=== PATIENT | female | born 1945 | race Caucasian/White ===

== ENCOUNTER → 2016-04-26 | Outpatient (CLI) | payer OTHER ==
[~2016-04-26] MED LIST: ASPIRIN81 M1 PO; ASPIRIN81 M2 PO; CELEXA PO; COREG3.125 MG PO; FOSAMAX PO; LEXAPRO PO; LISINOPRIL PO; VITAMIN B12-FO1 EACH PO
--- NOTE | ~2016-04-26 | MY11 ---
[facility] A Service of [facility] RADIOLOGY TEXT RESULTS PATIENT: RAUL JOHN LOCATION: [facility] : 45 UNIT #: [id number] AGE: [address]: Ye Cotton MD SEX: F ORDER DR: [id number] [facility] [address] [place], [place] [address] [id number] O MR#: [id number] Acc #: [id number] NAME: RAUL JOHN : 1945 SEX: F STUDY DATE/TIME: 04/26/2016 15:29 UNIT: [facility] ROOM: STUDY DESCRIPTION: MY Mammogram Screening [place] Attending Physician: Ye Cotton M.D. Ordering Physician: Ye Cotton M.D. Primary Care Physician: Ye Cotton M.D. MEDICAL IMAGING REPORT This report is preliminary unless electronic signature is present EXAM Digital screening mammogram, 04/26/2016. HISTORY 70-year-old woman positive family history, paternal grandmother. Annual screening. COMPARISON Mammograms date to 05/17/2007 with most recent 02/18/2015. Digital imaging of each breast was completed utilizing screening protocol. Review includes FDA-approved CAD device. Breast parenchyma is heterogeneously dense with a combination fibroglandular opacities and mild parenchymal nodularity. Subareolar duct prominence is noted in each breast. I see no suspicious mass and no suspicious microcalcifications. There is no architectural deformity. IMPRESSION Stable benign mammogram. Annual screening recommended. Patients over the age of 40 are entered into a reminder system with target due date for the next mammogram. A result letter will also be sent to the patient. BIRADS: 2 Benign finding Dictated by... Julio Mcdonald M.D. THIS IS AN ELECTRONICALLY VERIFIED REPORT Julio Mcdonald M.D. at 04/27/2016 8:04 AM [facility] A Service of [facility] RADIOLOGY TEXT RESULTS PATIENT: RAUL JOHN [id number] : 45 UNIT #: [id number] AGE: [address]: Ye Cotton MD SEX: F ORDER DR: HUBER/sindhu TD: 04/26/2016 21:57 JOB #: [id number] MEDICAL IMAGING REPORT Page 1 of 1 COPY
== END | disposition home or self-care (01) ==
LOC: CWCC 15:00
DX: Z12.31 Encounter for screening mammogram for malignant neoplasm of breast (principal); Z80.3 Family history of malignant neoplasm of breast
CPT/HCPCS: G0202